=== PATIENT | male | born 1945 | race Caucasian/White ===

== ENCOUNTER → 2016-09-06 | Outpatient (CLI) | payer OTHER, BC | LOC: BHFA 10:45 | PROVIDERS: ATTEND Internal Medicine Interventional Cardiology | DX: I05.9 Rheumatic mitral valve disease, unspecified (principal) ==

== ENCOUNTER → 2017-02-28 | Outpatient (CLI) | payer OTHER, BC | LOC: BHFA 10:30 | PROVIDERS: ATTEND Internal Medicine Cardiovascular Disease | DX: I34.0 Nonrheumatic mitral (valve) insufficiency (principal) ==

== ENCOUNTER → 2018-02-06 | Outpatient (CLI) | payer OTHER, BC | DX: E78.5 Hyperlipidemia, unspecified (principal) ==